=== PATIENT | male | born 1980 | race Caucasian/White ===

== ENCOUNTER 2017-04-04 11:22 | Emergency (ER) | payer SELFPAY ==
[~2017-04-04] VITALS: Ht 185.4 cm; Wt 104.6 kg
[~2017-04-04 11:22] MED LIST: ALEVE220 MG PO; CLEOCIN300 MG PO; FLEXERIL10 MG PO; MOBIC15 MG PO; MOTRIN600 MG PO; NAPROSYN500 MG PO; NOHOMEMEDS; NORCO 5/3251 TABLET PO; PEN-VEE K,VEET500 MG PO; ULTRAM50 MG PO; VICODIN,LORT1 TABLET PO
[2017-04-04 12:19] LABS: HEMATOCRIT 47.8 % (38.0-50.0); MCH 28.7 PG (29.0-34.0); MCHC 34.1 G/DL (30.0-36.0); MCV 84.2 FL (86-99); MEAN PLAT.VOLUME 9.5 uM^3 (9.0-12.4); PLATELET COUNT 147 K/uL (156-360); RBC DIS.WIDTH-CV 13.1 % (11.8-14.6); RED BLOOD COUNT 5.68 M/uL (4.00-5.50); WHITE BLOOD COUNT 9.2 K/uL (4.1-10.2)
[2017-04-04 12:30] LABS: CHLORIDE 106 mEq/L (99-109); POTASSIUM 3.9 mEq/L (3.7-5.4); SODIUM 140 mEq/L (136-147)
[2017-04-04 12:32] LABS: GLUCOSE 96 mg/dL (70-99)
[2017-04-04 12:34] LABS: ANION GAP 9 MEQ/L (2-14)
[2017-04-04 12:36] LABS: GFR ESTIMATE (CALCULATED) > 59 mL/min/
[2017-04-04 12:37] LABS: UREA NITROGEN (BUN) 6 mg/dL (9-23)
[2017-04-04] MEDS ORDERED: PREDNISONE20 MG PO (15:20)
[2017-04-04] MEDS ORDERED: VENTOLIN HFA18 GM IH (15:20)
[2017-04-04 15:32] VITALS: BP 114/73
== END 2017-04-04 15:40 | disposition home or self-care (01) ==
LOC: EME 11:22
PROVIDERS: Nurse Practitioner Family
DX: J06.9 Acute upper respiratory infection, unspecified (principal); R51 Headache; J90 Pleural effusion, not elsewhere classified; J43.9 Emphysema, unspecified; J98.11 Atelectasis; I82.612 Acute embolism and thrombosis of superficial veins of left upper extremity; J45.909 Unspecified asthma, uncomplicated; Z86.718 Personal history of other venous thrombosis and embolism; F17.200 Nicotine dependence, unspecified, uncomplicated
CPT/HCPCS: 71020; 71275; 80048; 85027; 85379; 87040; 93971; 94640; 99281; 99285; J1885; J7030; J7512

== ENCOUNTER 2017-05-03 18:07 | Emergency (ER) | payer OTHER ==
[~2017-05-03] VITALS: Ht 185.4 cm; Wt 102.8 kg
[~2017-05-03 18:07] MED LIST changes: +PREDNISONE20 MG PO; +VENTOLIN HFA18 GM IH
[2017-05-03] MEDS ORDERED: XARELTO1 EACH PO (21:07)
[2017-05-03 21:14] VITALS: BP 115/80
== END 2017-05-03 21:19 | disposition home or self-care (01) ==
LOC: EME 18:07
PROVIDERS: Nurse Practitioner Family
DX: I82.611 Acute embolism and thrombosis of superficial veins of right upper extremity (principal); J45.909 Unspecified asthma, uncomplicated; Z86.718 Personal history of other venous thrombosis and embolism; F17.200 Nicotine dependence, unspecified, uncomplicated
CPT/HCPCS: 85610; 85730; 93971; 99281; 99284